=== PATIENT | female | born 1960 | race African-American/Black ===

== ENCOUNTER 2023-08-24 06:38 | Observation (INO) ==
--- NOTE | 2023-08-04 14:26 | PAT Medication Instructions ---
Medication Instructions Date of Service August 04, 2023 Home Medications acetaminophen 325 mg tablet (Tylenol) 325 mg PO QID PRN Pain hydrochlorothiazide 12.5 mg tablet 12.5 mg PO QAM ibuprofen 800 mg tablet 800 mg PO Q6H PRN Pain ustekinumab 90 mg/mL subcutaneous syringe (Stelara) 90 mg subcut DIRECTED ASK your surgeon for instructions ibuprofen 800 mg tablet 800 mg PO Q6H PRN Pain ASK your prescriber and surgeon ustekinumab 90 mg/mL subcutaneous syringe (Stelara) 90 mg subcut DIRECTED DO NOT take the morning of surgery hydrochlorothiazide 12.5 mg tablet 12.5 mg PO QAM Take morning of surgery With a small sip of water, OTHERWISE NOTHING TO EAT OR DRINK AFTER MIDNIGHT: acetaminophen 325 mg tablet (Tylenol) 325 mg PO QID PRN Pain (if needed) Take evening before surgery acetaminophen 325 mg tablet (Tylenol) 325 mg PO QID PRN Pain (if needed) Other Notes If you have any questions please call us at [phone] or [phone] or [phone] or [phone]
--- NOTE | 2023-08-09 10:45 | Anesthesiology Consultation ---
Date of Service August 09, 2023 Assessment & Plan (1) Encounter for pre-operative examination: Chart Review Chart Review: Acceptable Risk for Surgery and Patient NOT seen in Pre Admission Testing Difficult lab stick Pt currently scheduled as 23 hours observation. If surgeon decides to change patient to Same Day Joint, patient would be acceptable risk for TKA, pending patient is motivated, has good support and surgeon's office completes [facility] Program preop requirements. Per PAT appt on 08/09/23, no recent illness/disease exposures, illness related symptoms, or recent illness/disease positive tests. Will leave to surgeon's discretion if preop Covid testing needed Teaching & Discussion Pre-Anesthesia Teaching/Discussion Notes: Instructed NPO after midnight before surgery,except medications with 15 cc of water. Medication instructions provided according to the PAT guidelines. History Surgery Operation Date: 08/24/23 07:00 Proposed Procedures p Right Total Knee Arthroplasty - Lito Rosales MD Height/Weight Height: 5 ft 7 in Weight: 112.4 kg Allergies Allergy/AdvReac Type Severity Reaction Status Date / Time No Known Allergies Allergy Verified 08/04/23 08:04 Medications Home Medications Medication Instructions Recorded Confirmed Last Taken acetaminophen 325 mg tablet 325 mg PO QID PRN Pain 08/04/23 08/04/23 Unknown (Tylenol) hydrochlorothiazide 12.5 mg tablet 12.5 mg PO QAM 08/04/23 08/04/23 Unknown ibuprofen 800 mg tablet 800 mg PO Q6H PRN Pain 08/04/23 08/04/23 Unknown ustekinumab 90 mg/mL subcutaneous 90 mg subcut DIRECTED 08/04/23 08/04/23 Unknown syringe (Stelara) Past Medical History Medical History Arthritis Esophageal achalasia remote hx with surgery to correct > no current issues History of COVID-2021 > not hospitalized Hypertension Psoriasis Exercise / Class Metabolic Activity II 4-5 Yardwork/Stairs/Walk up hill (no chest pain or SOB with one flight of stairs ) Past Surgical History Surgical History History of esophagogastroduodenoscopy (EGD) History of tooth extraction Past Anesthesia History No Hx of Anesthesia Complications and No Family Hx of Anesthesia Complications History of PONV No Hx of PONV and No Hx of Motion Sickness Social History Smoking Status: Never smoker Do You Dip or Chew Tobacco: No Hx Alcohol Use: No Hx Substance Use: No substance use type: does not use Review of Systems Patient denies chest pain, shortness of breath, dyspnea on exertion, reflux, cough, wheezing, palpitations. No hx of seizures, stroke, UT, apnea/snoring. No hx of blood clots or blood transfusions Physical Exam Vital Signs VITALS BP 140/87 P 76 TEMP 98.2 SP02 99% RESP 16 Constitutional no acute distress ENMT Mouth: no TMJ clicking Thyromental Distance: > or= 3.5 Finger Breadths (3.5) Mallampati Class: II Full dentures on top and bottom Neck neck extension not limited Respiratory normal respiratory effort; no respiratory distress Auscultation: lungs clear to auscultation bilaterally; no wheezes Cardiovascular Rate/Rhythm: regular rate and regular rhythm Heart Sounds: no murmur Vessels: no carotid bruit Musculoskeletal Spine: no pain with cervical ROM Extremities: extremities normal to inspection Psychiatric Orientation: alert Lab Results Anesthesia Preop Results Results Anesthesia Widget: WBC 4.86 K/ul (4.8-10.8) 08/09/23 Hgb 12.6 g/dl (12.0-16.0) 08/09/23 Hct 36.4 % (37.0-47.0) L 08/09/23 Plt 194 K/uL (130-400) 08/09/23 Na 141 mmol/L (136-145) 08/09/23 K 3.6 mmol/L (3.5-5.1) 08/09/23 Cl 106 mmol/L (98-107) 08/09/23 CO2 29 mmol/L (21-32) 08/09/23 BUN 12 mg/dl (6-23) 08/09/23 Creat 0.80 mg/dl (0.6-1.2) 08/09/23 Glucose Level 93 mg/dl (70-99(Fasting)) 08/09/23 PT 11.0 Seconds (9.0-12.0) 08/09/23 PTT 27.6 Seconds (21.0-31.0) 08/09/23 INR 1.0 (0.9-1.1) 08/09/23 Urine Color Yellow 08/09/23 Urine Appearance Clear (Clear) 08/09/23 Urine pH 6.5 (4.5-7.5) 08/09/23 Urine Specific Armstrong 1.018 (1.000-1.030) 08/09/23 Urine Protein Negative (Negative) 08/09/23 Urine Glucose (UA) Negative (Negative) 08/09/23 Urine Ketones Negative (Negative) 08/09/23 Urine Blood Negative (Negative) 08/09/23 Urine Nitrite Positive (Negative) A 08/09/23 Urine Bilirubin Negative (Negative) 08/09/23 Urine Urobilinogen Negative (Negative) 08/09/23 Urine Leukocyte Esterase 1+ (Negative) H 08/09/23 Urine WBC (Auto) 10-30 /hpf (0-5) H 08/09/23 Urine RBC (Auto) 0-4 /hpf (0-4) 08/09/23 Urine Hyaline Casts (Auto) 0 /lpf (0-5) 08/09/23 Urine Epithelial Cells (Auto) 5-10 /lpf (0-5) H 08/09/23 Urine Bacteria (Auto) 4+ (Negative) H 08/09/23 Blood Type O Positive 08/09/23 Antibody Screen NEGATIVE 08/09/23 Testing Laboratory Results Surgeon's office informed of abnormal UA Electrocardiogram Date: 08/09/23 SR with PACs at 70bpm Otherwise normal EKG per cardio
--- NOTE | 2023-08-10 16:23 | History & Physical Report ---
Date of Service August 10, 2023 Assessment & Plan (1) Osteoarthritis of right knee: Plan: PRE-OP Diagnosis: Right knee degenerative joint disease Planned Procedure: Right total knee arthroplasty Plan: Patient is scheduled to undergo this procedure at the [facility] with Dr. Rosales on August 24, 2023. Risks and complications of the procedure such as: Infection, bleeding, pain, scarring, nerve blood vessel damage, weakness, wound problems, stiffness, incomplete relief of symptoms, hardware failure, hardware loosening, wear, fracture, tendon or ligament injury, blood clots, embolism, cardiac, stroke and were explained to the patient at her visit today and informed consent for the procedure was obtained. Patient also understands risks of proceeding with surgical intervention during the COVID-19 pandemic. Currently she is asymptomatic and states that she has not been in contact with anyone positive for the virus recently. We will need to obtain preoperative medical clearance from the patient's primary care provider. We will also received guidance on when the patient should stop her Stelara before surgery by her impact hammer operator. Patient is scheduled to meet with anesthesia at the hospital later this morning. While there she will obtain a CBC with differential, complete metabolic panel, PT/INR, blood type and screen, urinalysis, urine culture and sensitivity, and an EKG. During today's visit we reviewed the total knee packet. I provided the patient with paperwork to obtain obtaining a handicap placard for her vehicle. I provided her with information about lectures offered by [facility] in regards to joint replacement surgery. I provided her with an order to obtain a walker. I recommended that she purchase a shower chair and raised toilet seat. We discussed discharge planning from the hospital. Patient states she will most likely do in-home physical therapy for the first 2 weeks before transitioning to outpatient physical therapy. I advised the patient that she will be provided with a prescription for narcotic pain medication for postoperative pain control. We will have her on aspirin twice daily for the first 30 days postoperatively for blood clot prevention. Patient verbalized understanding of all information provided during today's visit. Patient be scheduled for 2-week postoperative follow-up visit with myself on September 06, 2023. This chart was completed utilizing go2 media voice recognition software. Grammatical errors, random word insertions, pronoun errors, and in complete sentences are an occasional consequence of the system. Any questions or concerns about the content, text, or information contained within the body of this dictation should be addressed directly to the physician for clarification. History of Present Illness Chief Complaint: Chief Complaint: Right knee pain Primary Care Provider: NO PCP History of Present Illness (including history relevant to procedure): 62-year-old female presents to the clinic today for preoperative history and physical. Patient complains of a 2-year history of persistent right knee pain that affects the medial and lateral aspect of her knee. Patient states she has had corticosteroid injections and failed 2 series of viscosupplementation with Euflexxa. Patient states she has been using ibuprofen to help manage her pain but is minimally effective. She also states she tried a knee brace which did not alleviate her pain at all. She is electing to proceed with surgical intervention for her severe arthritis. Review Of Systems: A 12 point review of systems form is unremarkable except for those things stated in the HPI and past medical history. Past Medical History: Problems: Genu valgum Degenerative arthritis of knee, bilateral Overweight Hypertension Sickle cell trait Hiatal hernia Obesity Upper and lower dentures Psoriasis Procedure History Procedure Procedure Date Comments EGD section Allergies and Sensitivities: NKA Current Home Meds: (Last Updated 08/10 16:01) ciprofloxacin (Cipro 500 mg oral tablet) 500 mg PO q12h PREOP UTI sodium hyaluronate (Euflexxa 10 mg/mL intra-articular solution) 20 mg intra- articular q7days 6 syringes for B/L knees. Please ship to physician's office: [address] [place] [address] ustekinumab (Stelara Vial 45 mg/0.5 mL SQ solution) 45 mg subQ STELARA VIAL TO INJECT UNDER THE SKIN EVERY _WEEKS. DISCARD REMAINDER. Initial Wt: 08/09 112.8 kg 248 lb Allergies Allergy/AdvReac Type Severity Reaction Status Date / Time No Known Allergies Allergy Verified 08/04/23 08:04 Home Medications Medication Instructions Recorded Confirmed Type acetaminophen 325 mg tablet 325 mg PO QID PRN Pain 08/04/23 08/04/23 History (Tylenol) hydrochlorothiazide 12.5 mg tablet 12.5 mg PO QAM 08/04/23 08/04/23 History ibuprofen 800 mg tablet 800 mg PO Q6H PRN Pain 08/04/23 08/04/23 History ustekinumab 90 mg/mL subcutaneous 90 mg subcut DIRECTED 08/04/23 08/04/23 History syringe (Stelara) Past Med/Surg History Medical History Arthritis Esophageal achalasia remote hx with surgery to correct > no current issues History of COVID-19 2021 > not hospitalized Hypertension Psoriasis Surgical History History of esophagogastroduodenoscopy (EGD) History of tooth extraction Social History Smoking Status: Never smoker Second Hand Exposure: No; Do You Dip or Chew Tobacco: No; Hx Alcohol Use: No Hx Substance Use: No Preferred Language: Japanese Communication Ability: Effective Director Strategic Planning Required: No Beliefs That Will Affect Care: None Current Living Situation: Family Feels Safe at Home: Yes Assistive Devices: Denture - Upper, Denture - Lower and Glasses Review of Systems All systems reviewed & are unremarkable except as noted in Subjective Physical Exam Physical Exam: Physical Exam: (relevant to the procedure, including heart and lung evaluation) General: Alert and oriented x3 with proper grooming and hygiene Eyes: Pupils are equal and reactive to light with accommodation. Extraocular movements are intact Throat: Posterior oropharynx is clear with absence of edema, erythema and exudate. Presence of upper and lower dentures noted Cardiac: Regular rate with irregular rhythm (occasional PVC). No murmurs or gallops appreciated Lungs: Clear to auscultation throughout with no wheezing, rales or rhonchi Abdomen: Obese, nondistended, nontender with NABS Extremities: Right knee; range of motion is from 10 degrees of extension to 90 degrees of flexion. Patient experiences medial and lateral joint tenderness when the knees are palpated in the flexed position. She has visible valgus malalignment. Her patella is not mobile due to arthritic change within the patellofemoral joint. There is audible crepitation with passive range of motion of the knee. There is no laxity with varus or valgus stressing. AP drawer sign is unremarkable. Patient is neurovascular intact. Neuro: Cranial nerves II through XII are intact no motor or sensory deficit Skin: Normal in appearance with no open skin areas or discharge Results & Data Diagnostic Findings Studies (relevant to the procedure): 4 views of both knees which shows bone on bone arthritis bilaterally, right worse than the left. Tricompartmental osteophyte formation stable compared to x-rays from 1 year ago.
[~2023-08-24 06:38] MED LIST: ACETAMINOPHEN 500 MG TAB PO SCH; BUPIVACAINE 0.25% PF 30 ML VIAL ONE; BUPIVACAINE 0.5 % 5 MG/1 ML PF 10ML VIAL ONE; CeleBREX 200 MG CAP PO SCH; FAMOTIDINE 20 MG TAB PO SCH; LR 60ML/HR IV SCH; MIDAZOLAM HCL 1 MG/ML 2ML VIAL ONE; ORTHO JOINT ANESTHETIC ONE; PROPOFOL IV EMULSION 10 MG/ML 20 ML VIAL IV ONE; ROPIVACAINE 0.5% HCL/PF 150 MG, BUPIVACAINE 0.75% MPF 20 ML, EPINEPHrine 0.15 MG, Ketor... INFIL SCH; Scopolamine 1 MG TDSY TD SCH; TRANEXAMIC ACID 1,000 MG **IV Intra-op IV SCH; TRANEXAMIC ACID 1,000 MG **IV Pre-op IV SCH; dexAMETHasone 4 MG TAB PO SCH; fentaNYL citrate PF 100 MCG/2 ML VIAL ONE; traMADol HCL 50 MG TABLET PO SCH
--- NOTE | 2023-08-24 06:48 | History & Physical Bridge Note ---
Date of Service August 24, 2023 History & Physical Bridge Note I have examined the patient, reviewed the History & Physical and in the interval since the performance of the History & Physical I have noted the following changes of clinical significance: no changes noted
[2023-08-24] MEDS ORDERED: ONDANSETRON INJ 2 MG/ML 2 ML VIAL IV PRN ×2 (06:59→10:06)
[2023-08-24] MEDS ORDERED: ATROPINE SULFATE 0.1 MG/ML 10ML SYR IV PRN (06:59)
[2023-08-24] MEDS ORDERED: ePHEDrine sulfate 50 MG/ML AMP IV PRN (06:59)
[2023-08-24] MEDS ORDERED: ROCURONIUM BROMIDE 10 MG/ML 5 ML VIAL IV ONE (08:08)
[2023-08-24] MEDS ORDERED: LIDOCAINE 2% 2 ML VIAL/AMP(20MG/ML) INFIL ONE (08:08)
[2023-08-24] MEDS ORDERED: fentaNYL citrate PF 100 MCG/2 ML VIAL IV PRN (08:09)
[2023-08-24] MEDS ORDERED: fentaNYL citrate PF 100 MCG/2 ML VIAL ONE (08:19)
[2023-08-24] MEDS ORDERED: LABETALOL HCL IV 5 MG/ML 20ML IV ONE ×5 (08:23→08:53)
[2023-08-24] MEDS ORDERED: HYDROmorphone INJ 2 MG/ML SYR/VIAL ONE (08:34)
[2023-08-24] MEDS ORDERED: ONDANSETRON INJ 2 MG/ML 2 ML VIAL ONE (08:46)
[2023-08-24] MEDS ORDERED: ePHEDrine sulfate 50 MG/5 ML SYR ONE (09:33)
[2023-08-24] MEDS ORDERED: METOCLOPRAMIDE HCL INJ 5 MG/ML 2 ML VIAL IV PRN (10:06)
[2023-08-24] MEDS ORDERED: ALUMINUM/MAGNESIUM SUSP 30 ML UDC PO PRN (10:06)
[2023-08-24] MEDS ORDERED: MAGNESIUM HYDROXIDE SUSP 30 ML UDC PO PRN (10:06)
[2023-08-24] MEDS ORDERED: NALOXONE HCL 0.4 MG/1 ML VIAL/CARP IV PRN (10:06)
[2023-08-24] MEDS ORDERED: HYDROmorphone INJ 0.5 MG/0.5 ML SYR IV PRN (10:06)
[2023-08-24] MEDS ORDERED: bisacodyL 10 MG SUPP PR PRN (10:06)
[2023-08-24] MEDS ORDERED: diphenhydrAMINE 50 MG/ML VIAL IV PRN (10:06)
--- NOTE | 2023-08-24 10:06 | Operative Report ---
Post Operative Report Pre & Post Diagnosis Operation Date: 08/24/23 07:00 Pre-Op Diagnosis: Right knee degenerative joint disease Post-Op Diagnosis: Right knee degenerative joint disease I identified the patient and participated in the time-out.: Yes Procedure Operation Date: 08/24/23 07:00 Actual Procedures p Right Total Knee Arthroplasty(Right) - Lito Rosales MD Surgeon Lito Rosales MD Large Animal Husbandry Technician Lamin Funk PA-C Estimated Blood Loss 200 Findings Consistent with Post-Op Diagnosis Specimens knee bone and tissue Description of Procedure I was present during the entire case assisting with positioning, prepping, draping, wound retraction, wound closure and dressing application. No fellow present. Please see Dr. Rosales procedure note for specifics of the case. I attest to the content of the Intraoperative Record and any orders documented therein. Any exceptions are noted below.
--- NOTE | 2023-08-24 10:08 | Operative Report ---
Post Operative Report Pre & Post Diagnosis Operation Date: 08/24/23 07:00 Pre-Op Diagnosis: Right knee degenerative joint disease, valgus malalignment Post-Op Diagnosis: Right knee degenerative joint disease, valgus malalignment I identified the patient and participated in the time-out.: Yes Procedure Operation Date: 08/24/23 07:00 Actual Procedures p Right Total Knee Arthroplasty(Right) 22 modifier should be added to the case due to the patient's valgus malalignment and elevated body mass index of 39 both of which increased the complexity of the case and required a larger incision, additional time for exposure, execution of the knee replacement, and closure of the wound.- Lito Rosales MD Surgeon Lito Rosales MD Corrections Caseworker MANNY Funk PA-C. No resident or fellow was available to assist. Estimated Blood Loss 200 Findings Consistent with Post-Op Diagnosis Specimens Right knee bone and soft tissue contents. Anesthesia Type General Regional Complications none Disposition Disposition: Recovery Room Indications 62-year-old female with right knee valgus malalignment and severe [id number] osteoarthritis refractory to conservative management. I had a long discussion with her about the risks and benefits of surgery, alternatives to surgery, and expected outcomes. She understands that she is at elevated risk for complications secondary to her valgus malalignment and her obesity. After reviewing all her options she elected to proceed with surgery. All questions were answered. Informed consent was signed. Description of Procedure Patient was identified in the preoperative holding area where the surgical site, left knee, was marked. Spinal anesthetic was attempted by anesthesia, but was unsuccessful. Abductor canal block however was placed. Patient was brought back to the operating room, placed on the operating room table, and general anesthesia was administered. A bump was placed underneath the ipsilateral hip. All bony prominences were padded. Perioperative antibiotics and tranexamic acid were administered. Exam under anesthesia was performed. This demonstrated approximately 15 degrees of valgus malalignment. Range of motion arc was from approximately 10 to 90 degrees. Stable to varus and valgus at 30 degrees of flexion. The surgical site was prepped and draped in the normal sterile fashion. Prior to incision a multidisciplinary timeout was called. All in the room were in agreement. We began by exsanguinating the limb with an Esmarch bandage. Tourniquet was inflated to 250 mmHg. An 18 cm long incision was made over the anterior aspect of the knee. This was larger than is typically performed secondary to her elevated body mass index and obesity. I dissected through the subcutaneous tissues to the level of the fascia. Full-thickness flaps were raised above the fascia. Patient had some bleeding as a result of her blood pressure being elevated to 160 systolic. Therefore, the tourniquet was increased to 300 mmHg while anesthesia worked to lower her blood pressure. Electrocautery and an aqua mantis was used to achieve hemostasis. A median parapatellar arthrotomy was made. Half the fat pad was excised. A medial release was performed with Bovie electrocautery on the proximal tibia. Synovitis in the knee and suprapatellar pouch was removed. The patella was then everted and held with 2 towel clips. 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 The thickness of the patella was measured at 21 mm. Patellar resection was performed. Caliper showed the patella thickness now to be 14 mm. A size 32 trial was placed and had a great fit. The 3 drill holes were placed then the trial button was placed. The patellar thickness was now 23 mm which I was very happy with. The patellar trial was then removed, and the knee was flexed up. Retractors were placed to protect the MCL and LCL. The knee was inspected and there was severe osteoarthritis in the lateral compartment with eburnation of the lateral tibial plateau and the lateral femoral condyle. Osteophytes were removed from the femoral condyles and intercondylar notch. The ACL and PCL were excised. Intramedullary drill guide was drilled into the femur. Distal femoral cutting guide was placed set at 5 degrees of valgus to resect 11 mm off the distal femur. Distal femoral resection was made without difficulty. The tibia was then exposed. The lateral meniscus was sharply excised. The tibial cutting jig was positioned in line with the tibial shaft in the coronal plane and with 3 degrees of posterior slope in the sagittal plane to resect 7 mm off the more involved compartment. The jig was then pinned in position and the tibial cut was made. We then brought the knee into full extension. Lamina spreaders were placed. We had a nice rectangular box. Lateral soft tissues were inspected and there was no excessive tightness. The medial meniscus was excised. The extension block was then placed for 5 mm thickness poly. This gave us full extension and excellent stability to varus and valgus stress. Next the extension block was removed, the knee was flexed up, collateral ligaments were protected, and the epicondylar axis and Whitesides line were marked out on the distal femoral cut. Femoral sizing guide was placed. External rotation was set at 3 degrees so that the posterior cut would be parallel with the epicondylar axis and perpendicular with Whitesides line. The patient sized to a size 5 femur. 2 pins were then placed through the jig into the distal femur. The jig was removed and the appropriately sized 4-in-1 cutting jig was placed over the pins, then fixated to the bone using threaded, headed pins. We confirmed that we would not notch the femur with our anterior cut. Our 4 cuts were then made. The cutting jig was removed. The flexion block was then placed with the knee held at 90 degrees. There was excellent stability to varus and valgus at 90 degrees with no gapping medially or laterally. Next the box cutting jig was placed on the distal femur. The box cut was made and the femoral trial was impacted into position. Lug holes were drilled in the distal femur. We then reexposed the tibia. The tibia was sized to a 5 for a fixed-bearing component. The tibial tray with a 5 mm thickness polyethylene liner was placed on the cut tibial surface and the knee was brought through a full range of motion. There was excellent stability to varus valgus stress throughout a full range of motion, which was approximately 0-115 degrees. Bovie electrocautery was used to mo the tibia at the site where the tibial tray rested in full extension. We then flexed up the knee, removed the polyethylene liner, and pinned the tibial tray into position to match the cautery mo. The intramedullary drill followed by the keel punch were used to prepare the tibia. Next the trial components were removed. I then injected the posterior capsule and periosteum with the periarticular injection cocktail. The bone cuts were then irrigated and dried while the cement was mixed on the back table. The femoral component was cemented on first. Excess cement was removed. A lap sponge was placed over the femoral component for protection, then the tibia was subluxated anteriorly. The all polyethylene tibial component was then cemented in place. Again excess cement was removed. The knee was brought into full extension and held there until the cement cured. The patella was cemented and clamped. Dilute Betadine solution was then allowed to soak in the knee while the cement cured. Once the cement was fully cured, the knee was irrigated out, the tourniquet was let down and meticulous hemostasis was ensured. The knee was brought through a full range of motion. I was were very happy with the patella tracking and the stability. We then began to close. Interrupted 0 Vicryl suture was used to repair the patellar retinaculum in [id number] fashion. The quadriceps and patellar tendons were run with #1 Vicryl. The deep dermal layer was closed with interrupted 2-0 Vicryl. Dermabond and Zipline was used for the skin, followed by a Silverlon dressing. A compressive Ashu wrap was placed and the knee was placed into a knee immobilizer. Patient's sedation was lifted and was transferred to recovery room in stable condition. Summary of implants: Depuy Attune Posterior Stabilized Cemented Femur, size 5 right Attune All-polyethylene tibial component, posterior stabilized 5 mm thickness, size 5 Attune patella medialized dome, size 32 2 batches of simplex high viscosity bone cement Postoperative course: Patient will be admitted to the floor for pain control and monitoring. Weightbearing as tolerated with a walker with no knee range of motion for 48 hours. Aspirin for DVT prophylaxis. I attest to the content of the Intraoperative Record and any orders documented therein. Any exceptions are noted below.
[2023-08-24] MEDS ORDERED: IBUPROFEN 800 MG TAB PO PRN (10:09)
[2023-08-24] MEDS ORDERED: ACETAMINOPHEN 325 MG TAB PO PRN (10:09)
[2023-08-24] MEDS: fentaNYL citrate PF 100 MCG/2 ML VIAL IV PRN ×4 (10:11→10:26)
[2023-08-24] MEDS: HYDROmorphone INJ 1 MG/ML SYRINGE IV PRN ×4 (10:27→10:44)
--- NOTE | 2023-08-24 11:18 | XRay Report ---
XR knee RT 1 or 2V routine HISTORY: 62 years-old Female Surgical Post Op right knee total joint arthroplasty COMPARISON: 08/09/2023 TECHNIQUE: 2 views of the right knee FINDINGS: Total joint arthroplasty with patellar resurfacing. Expected postoperative soft tissue swelling with deep tissue air. No acute fracture, dislocation or opaque foreign body. IMPRESSION: Total joint arthroplasty with expected postoperative changes. ACT 112: Negative or not required by law. The above report was generated using voice recognition software. It may contain grammatical, syntax o r spelling errors. Electronically signed by: Fam Tenorio M.D. 08/24/2023 11:17 AM
[2023-08-24] MEDS: SODIUM CHLORIDE 0.9% 1,000 ML IV SCH ×2 (11:43→21:54)
[2023-08-24] MEDS: KETOROLAC TROMETHAMINE 15 MG/ML VIAL IV SCH ×3 (11:45→21:01)
[2023-08-24] MEDS: ACETAMINOPHEN 500 MG TAB PO SCH ×2 (14:07→21:01)
--- NOTE | 2023-08-24 15:25 | Anesthesiology Progress Note ---
Date of Service August 24, 2023 Anesthesia Post Procedure Vital Signs Vital Signs: Temp Pulse Pulse Resp BP Pulse Ox O2 Del Method 08/24/23 14:10 36.4 C L 69 18 146/82 H 98 Room Air 08/24/23 13:10 36.2 C L 67 16 132/80 100 Nasal Cannula 08/24/23 12:10 36.4 C L 58 L 16 125/84 98 Nasal Cannula 08/24/23 11:40 36.4 C L 59 L 16 122/78 99 Nasal Cannula 08/24/23 11:28 Nasal Cannula 08/24/23 11:10 36.5 C 64 16 137/88 98 Nasal Cannula 08/24/23 11:00 60 14 132/88 98 Nasal Cannula 08/24/23 10:50 58 L 13 133/86 99 Nasal Cannula 08/24/23 10:40 36.5 C 60 12 136/82 99 Nasal Cannula 08/24/23 10:30 61 19 133/83 97 Nasal Cannula 08/24/23 10:20 63 17 141/85 H 97 Nasal Cannula 08/24/23 10:10 67 15 137/88 100 Oxymask 08/24/23 10:03 36.3 C L 70 16 137/84 100 Oxymask 08/24/23 06:56 Room Air 08/24/23 06:52 36.9 C 86 20 154/112 H 97 Room Air O2 Flow Rate 08/24/23 14:10 08/24/23 13:10 1 08/24/23 12:10 1 08/24/23 11:40 1 08/24/23 11:28 1 08/24/23 11:10 1 08/24/23 11:00 3 08/24/23 10:50 3 08/24/23 10:40 3 08/24/23 10:30 3 08/24/23 10:20 3 08/24/23 10:10 4 08/24/23 10:03 6 08/24/23 06:56 08/24/23 06:52 Pain Intensity Right Knee: Pain Intensity: 10 Transfer of Care Handoff Completed per policy Notes Mental Status: alert / awake / arousable and participated in evaluation Patient Amnestic to Procedure: Yes Nausea / Vomiting: adequately controlled Pain: adequately controlled and improving with treatment Airway Patency, RR, SpO2: stable & adequate BP & HR: stable & adequate Hydration State: stable & adequate Anesthetic Complications: no major complications apparent and Pt Satisfied with anesthetic care
[2023-08-24] MEDS: ceFAZolin 2000MG 2,000 MG/15 ML SYR IV SCH ×2 (15:52→23:55)
[2023-08-24] MEDS: Scopolamine CHECK PATCH PLACEMENT SCH (15:54)
[2023-08-24] MEDS: oxyCODONE HCL IR 5 MG TAB (IMMEDIATE RELEASE) PO PRN ×3 (15:55→23:57)
[2023-08-24] MEDS ORDERED: TRANEXAMIC ACID / 0.7% NACL 1,000 MG/100 ML BAG IV SCH (16:15)
--- NOTE | 2023-08-24 17:09 | Orthopedic Progress Note ---
Date of Service August 24, 2023 Assessment & Plan (1) S/P total knee replacement: (2) Peroneal nerve lesion: Plan: I discussed with the patient that she is firing some of the muscles innervated by the common peroneal nerve, however she does not find her ankle dorsiflexors at present. Therefore we will treat her as a peroneal nerve injury. The nurse at the bedside we were able to position her so her hip was in extension and her knee was flexed off the side of the bed resting on a pillow with the knee at approximately 70 degrees of flexion. I asked her to remain in this position at all times except to have her dinner at which time she can sit upright until the nerve recovers. It would be okay for her to get out of bed with a walker to use the restroom so long as she is extremely cautious, since she is a fall risk because of a peroneal nerve injury. Therefore, walking should be minimized until the nerve recovers. Should she continue to have loss of ankle dorsiflexion tomorrow we would plan on getting her an AFO. Her nurse will contact me later this evening to give me an update on her foot and ankle. I reviewed her x-ray findings with her from the recovery room and the hardware is in good position with no evidence of complication on x-ray. Admission and Anticipated Discharge Date Admission Date: August 24, 2023 Subjective Patient seen and examined on afternoon rounds. She underwent total knee replacement for valgus knee earlier today. She reports her pain is under good control. Not having any nausea or vomiting. Her dinner arrived while I was at her bedside and she reports she is hungry. Denies fevers chills chest pain shortness of breath. Physical Exam Physical Exam: On exam her dressing is clean dry and intact. Knee immobilizer is in place. She was able to fire her toe extensors and peroneals at 4 out of 5 strength. However she had difficulty firing her ankle dorsiflexors. She reports sensation intact to light touch over the dorsum of the foot but decreased sensation over the lateral aspect of her calf. Knee immobilizer was removed. Her Ashu bandage was checked and it was not overly tight. Results & Data Vital Signs (Past 12 Hours) Vital Signs Temp Pulse Pulse Resp BP Pulse Ox O2 Del Method 08/24/23 14:10 36.4 C L 69 18 146/82 H 98 Room Air 08/24/23 13:10 36.2 C L 67 16 132/80 100 Nasal Cannula 08/24/23 12:10 36.4 C L 58 L 16 125/84 98 Nasal Cannula 08/24/23 11:40 36.4 C L 59 L 16 122/78 99 Nasal Cannula 08/24/23 11:28 Nasal Cannula 08/24/23 11:10 36.5 C 64 16 137/88 98 Nasal Cannula 08/24/23 11:00 60 14 132/88 98 Nasal Cannula 08/24/23 10:50 58 L 13 133/86 99 Nasal Cannula 08/24/23 10:40 36.5 C 60 12 136/82 99 Nasal Cannula 08/24/23 10:30 61 19 133/83 97 Nasal Cannula 08/24/23 10:20 63 17 141/85 H 97 Nasal Cannula 08/24/23 10:10 67 15 137/88 100 Oxymask 08/24/23 10:03 36.3 C L 70 16 137/84 100 Oxymask 08/24/23 06:56 Room Air 08/24/23 06:52 36.9 C 86 20 154/112 H 97 Room Air O2 Flow Rate 08/24/23 14:10 08/24/23 13:10 1 08/24/23 12:10 1 08/24/23 11:40 1 08/24/23 11:28 1 08/24/23 11:10 1 08/24/23 11:00 3 08/24/23 10:50 3 08/24/23 10:40 3 08/24/23 10:30 3 08/24/23 10:20 3 08/24/23 10:10 4 08/24/23 10:03 6 08/24/23 06:56 08/24/23 06:52
[2023-08-24] MEDS: DOCUSATE SODIUM 100 MG CAP PO SCH (20:55)
[2023-08-24] MEDS ORDERED: SENNA 8.6 MG TAB PO SCH (21:00)
[2023-08-25] MEDS: Scopolamine CHECK PATCH PLACEMENT SCH ×3 (00:19→14:50)
[2023-08-25] MEDS: KETOROLAC TROMETHAMINE 15 MG/ML VIAL IV SCH (04:07)
[2023-08-25] MEDS: ACETAMINOPHEN 500 MG TAB PO SCH ×2 (05:39→14:50)
[2023-08-25] MEDS: oxyCODONE HCL IR 5 MG TAB (IMMEDIATE RELEASE) PO PRN ×2 (05:40→16:30)
[2023-08-25 06:47] LABS: Hematocrit (blood only) 27.5 % (37.0-47.0); Hemoglobin 9.4 g/dl (12.0-16.0); Mean Corpuscular Hemoglobin 29.4 pg (25.0-34.0); Mean Corpuscular Hgb Conc 34.2 g/dL (32.0-36.0); Mean Corpuscular Volume 85.9 fL (80.0-100.0); Mean Platelet Volume 12.2 fL (9.4-12.4); Platelet Count 136 K/uL (130-400); RDW Coefficient of Variation 13.5 % (11.5-14.5); RDW Standard Deviation 42.2 fL (36.4-46.3); White Blood Count 13.75 K/ul (4.8-10.8)
[2023-08-25 06:54] LABS: Calcium 8.3 mg/dl (8.6-10.3); Potassium 4.2 mmol/L (3.5-5.1)
[2023-08-25 07:00] LABS: BUN Creatinine Ratio 12.2 (10-20); Est GFR (African American) 80.5 ml/min; Est GFR (Non-African American) 69.5 ml/min
[2023-08-25] MEDS ORDERED: dexAMETHasone 4 MG TAB PO SCH (08:00)
[2023-08-25] MEDS: DOCUSATE SODIUM 100 MG CAP PO SCH (08:54)
[2023-08-25] MEDS ORDERED: ASPIRIN 81 MG ECTAB PO SCH (09:00)
[2023-08-25] MEDS ORDERED: MULTIVITAMIN TAB PO SCH (09:00)
[2023-08-25] MEDS ORDERED: hydroCHLOROthiazide 25 MG TAB PO SCH (09:00)
[2023-08-25] MEDS ORDERED: CeleBREX 200 MG CAP PO SCH (09:00)
--- NOTE | 2023-08-25 09:12 | Orthopedic Progress Note ---
Date of Service August 25, 2023 Assessment & Plan (1) S/P total knee replacement: Plan: PT/OT Weightbearing as tolerated with walker assistance and immobilizer use for the first 48 hours postoperatively Pain control with p.o. medication DVT prophylaxis with LIBRADO stockings and aspirin Ice with easy wrap Keep Silverlon dressing in place Plan is to discharge home later today with in-home physical therapy for the first 2 weeks postoperatively Follow-up at [facility] orthopedics as previously scheduled With questions contact our clinic at [phone] Admission and Anticipated Discharge Date Admission Date: August 24, 2023 Subjective This 62-year-old female is day 1 status post right total knee arthroplasty. She is currently sitting in her bedside chair eating breakfast. She states that her pain is effectively controlled with the p.o. pain medication she was given. She is very pleased with the results of her surgery. Currently she denies chest pain, shortness of breath, fever, chills, sweats, numbness or tingling in her right lower extremity. She states that she has been able to transition from her bed to the chair and from her chair to her walker and been able to use the restroom without issue. She also denies nausea, vomiting, diarrhea or difficulty voiding. Review of Systems Review of Systems: All systems reviewed & are unremarkable except as noted in Subjective Physical Exam Physical Exam: Right knee: Outer dressing was removed. Silverlon's are clean dry and intact and left in place. Patient does have some mild tenderness to palpation over the quadriceps region where the tourniquet was placed. She is able to actively perform a straight leg raise test and actively dorsi and plantarflex her foot. Active knee range of motion is from 0 degrees of extension to 80 degrees of flexion. Patient is neurovascularly intact. There is no laxity with light varus or valgus stressing. Results & Data Vital Signs (Past 12 Hours) Vital Signs Temp Pulse Resp BP BP Pulse Ox O2 Del Method 08/25/23 07:05 36.8 C 73 16 100/62 97 Room Air 08/25/23 06:00 36.9 C 70 18 123/76 94 Room Air 08/25/23 02:18 36.7 C 79 18 105/64 96 Room Air 08/24/23 21:59 36.6 C 71 18 130/71 95 Room Air Diagnostic Findings Laboratory Results WBC 13.75 K/ul (4.8-10.8) H 08/25/23 06:13 RBC 3.20 M/uL (4.20-5.40) L 08/25/23 06:13 Hgb 9.4 g/dl (12.0-16.0) L 08/25/23 06:13 Hct 27.5 % (37.0-47.0) L 08/25/23 06:13 MCV 85.9 fL (80.0-100.0) 08/25/23 06:13 MCH 29.4 pg (25.0-34.0) 08/25/23 06:13 MCHC 34.2 g/dL (32.0-36.0) 08/25/23 06:13 RDW Std Deviation 42.2 fL (36.4-46.3) 08/25/23 06:13 RDW Coeff of Lyn 13.5 % (11.5-14.5) 08/25/23 06:13 Plt Count 136 K/uL (130-400) 08/25/23 06:13 MPV 12.2 fL (9.4-12.4) 08/25/23 06:13 Sodium 136 mmol/L (136-145) 08/25/23 06:13 Potassium 4.2 mmol/L (3.5-5.1) 08/25/23 06:13 Chloride 105 mmol/L (98-107) 08/25/23 06:13 Carbon Dioxide 25 mmol/L (21-32) 08/25/23 06:13 Anion Gap 6 (3-11) 08/25/23 06:13 BUN 11 mg/dl (6-23) 08/25/23 06:13 Creatinine 0.90 mg/dl (0.6-1.2) 08/25/23 06:13 Est Cr Clr Drug Dosing 86.0 ml/min 08/25/23 06:13 Est GFR ( Amer) 80.5 ml/min 08/25/23 06:13 Est GFR (Non-Af Amer) 69.5 ml/min 08/25/23 06:13 BUN/Creatinine Ratio 12.2 (10-20) 08/25/23 06:13 Glucose 123 mg/dl (70-99(Fasting)) H 08/25/23 06:13 Calcium 8.3 mg/dl (8.6-10.3) L 08/25/23 06:13 Impressions Knee X-Ray 08/24/23 10:06 XR knee RT 1 or 2V routine HISTORY: 62 years-old Female Surgical Post Op right knee total joint arthroplasty COMPARISON: 08/09/2023 TECHNIQUE: 2 views of the right knee FINDINGS: Total joint arthroplasty with patellar resurfacing. Expected postoperative soft tissue swelling with deep tissue air. No acute fracture, dislocation or opaque foreign body. IMPRESSION: Total joint arthroplasty with expected postoperative changes. ACT 112: Negative or not required by law. The above report was generated using voice recognition software. It may contain grammatical, syntax or spelling errors. Electronically signed by: Fam Tenorio M.D. 08/24/2023 11:17 AM
--- NOTE | 2023-08-25 09:18 | Discharge Summary ---
Date of Service August 25, 2023 Admission HPI Per Admitting Provider History of Present Illness (including history relevant to procedure): 62-year-old female presents to the clinic today for preoperative history and physical. Patient complains of a 2-year history of persistent right knee pain that affects the medial and lateral aspect of her knee. Patient states she has had corticosteroid injections and failed 2 series of viscosupplementation with Euflexxa. Patient states she has been using ibuprofen to help manage her pain but is minimally effective. She also states she tried a knee brace which did not alleviate her pain at all. She is electing to proceed with surgical i ntervention for her severe arthritis. Review Of Systems: A 12 point review of systems form is unremarkable except for those things stated in the HPI and past medical history. Past Medical History: Problems: Genu valgum Degenerative arthritis of knee, bilateral Overweight Hypertension Sickle cell trait Hiatal hernia Obesity Upper and lower dentures Psoriasis Procedure History Procedure Procedure Date Comments EGD section Allergies and Sensitivities: NKA Current Home Meds: (Last Updated 08/10 16:01) ciprofloxacin (Cipro 500 mg oral tablet) 500 mg PO q12h PREOP UTI sodium hyaluronate (Euflexxa 10 mg/mL intra-articular solution) 20 mg intra- articular q7days 6 syringes for B/L knees. Please ship to physician's office: [address] [place] [id number] ustekinumab (Stelara Vial 45 mg/0.5 mL SQ solution) 45 mg subQ STELARA VIAL TO INJECT UNDER THE SKIN EVERY _WEEKS. DISCARD REMAINDER. Initial Wt: 08/09 112.8 kg 248 lb Admission Exam Per Admitting Provider Physical Exam: (relevant to the procedure, including heart and lung evaluation) General: Alert and oriented x3 with proper grooming and hygiene Eyes: Pupils are equal and reactive to light with accommodation. Extraocular movements are intact Throat: Posterior oropharynx is clear with absence of edema, erythema and exudate. Presence of upper and lower dentures noted Cardiac: Regular rate with irregular rhythm (occasional PVC). No murmurs or gallops appreciated Lungs: Clear to auscultation throughout with no wheezing, rales or rhonchi Abdomen: Obese, nondistended, nontender with NABS Extremities: Right knee; range of motion is from 10 degrees of extension to 90 degrees of flexion. Patient experiences medial and lateral joint tenderness when the knees are palpated in the flexed position. She has visible valgus malalignment. Her patella is not mobile due to arthritic change within the patellofemoral joint. There is audible crepitation with passive range of motion of the knee. There is no laxity with varus or valgus stressing. AP drawer sign is unremarkable. Patient is neurovascular intact. Neuro: Cranial nerves II through XII are intact no motor or sensory deficit Skin: Normal in appearance with no open skin areas or discharge Principal Diagnosis Right knee osteoarthritis Discharge Exam Right knee: Outer dressing was removed. Silverlon's are clean dry and intact and left in place. Patient does have some mild tenderness to palpation over the quadriceps region where the tourniquet was placed. She is able to actively perform a straight leg raise test and actively dorsi and plantarflex her foot. Active knee range of motion is from 0 degrees of extension to 80 degrees of flexion. Patient is neurovascularly intact. There is no laxity with light varus or valgus stressing. Discharge Data Allergies Allergy/AdvReac Type Severity Reaction Status Date / Time No Known Allergies Allergy Verified 08/04/23 08:04 Procedures Performed Operation Date: 08/24/23 07:00 Actual Procedures p Right Total Knee Arthroplasty(Right) - Lito Rosales MD Ordered Studies 08/24/23 05:00 US - OR guided needle placemen Routine Hospital Course (1) S/P total knee replacement: Patient had an uneventful overnight stay following right total knee arthroplasty. She is very pleased with the results of the surgery. She states that her pain is effectively controlled with oral oxycodone. She plans on being discharged home later today with in-home physical therapy for the first 2 weeks postoperatively. PT/OT Weightbearing as tolerated with walker assistance and immobilizer use for the first 48 hours postoperatively Pain control with p.o. medication DVT prophylaxis with LIBRADO stockings and aspirin Ice with easy wrap Keep Silverlon dressing in place Plan is to discharge home later today with in-home physical therapy for the first 2 weeks postoperatively Follow-up at [facility] orthopedics as previously scheduled With questions contact our clinic at [phone] Total Time Total Time Spent Total Time Spent (In Minutes): 20 minutes Discharge Plan Discharge Items Patient Disposition: Home - Home Health Services Reason For Visit: Right Knee Osteoarthritis Discharge Diagnosis: Right Knee Osteoarthritis Activity: As commented below Lifting: None Bathing: Keep incision dry Bathing Comment: May shower tomorrow Sexual Activity: Wait until after follow-up appointment Exercise/Sports: Wait until after follow-up appointment Driving/Machine Use: No driving until cleared by security assurance specialist Weightbearing: Right weightbearing Weightbearing Comment: as tolerated with walker assistance Non-emergency contact: Surgeon Call non-emergency contact if: you have any medication questions, your pain is worsening, your temperature is above 101.5, your wound has increased drainage and your wound pain has increased Follow-up/Referrals: PCP,NO [Primary Care Provider] - Diet: Regular Addtl Attending Provider Instructions: Post-operative Instructions Dear Patient and Family/Friends, Before you are discharged from the hospital, it is important to know what to expect when you get home after surgery. To that end, we have created this sheet of discharge instructions which covers many commonly asked questions. Make sure you go through this sheet in its entirety with your nurse before you are discharged. Please note that we will go over the specifics of your surgery and recovery when you return for your first post-operative visit. Sincerely, Dr. Rosales Medications 1. Oxycodone 5 mg: take 1-2 tab every 4-6 hours as needed for pain relief. This will be sent to your pharmacy. 2. Ibuprofen 800 mg: resume your q6 hrs Ibuprofen. If you need a refill, contact our clinic. 3. Aspirin 81 mg: take 1 tab twice daily for 30 days post operatively for blood clot prevention. Please purchase. 4. Tylenol 325 mg: take your Tylenol 4x/daily for supplemental pain relief. Pain Expect to be in a fair amount of pain after surgery. Remember, our goal is not to eliminate your pain, but to make it tolerable. It is a good idea to stay ahead of your pain by taking the medications you were prescribed once you get home. Typically, the pain starts improving 3-7 days after surgery. You should start weaning off the narcotic pain medication (oxycodone, hydrocodone, hydromorphone, morphine) as soon as your pain improves. Please call our office if your pain is not adequately controlled. Ice Ice your operative site at least 5 times a day for 15-30 minutes at a time. Make sure you have a thin cloth between the ice or cooling unit and your skin to prevent garcia bite. This is especially important if you received a nerve block. Continue icing your operative site for the first 5-7 days after surgery, then as needed. Diet/Nausea/Vomiting Start by drinking clear liquids and eating crackers. If you can tolerate this, then you may resume your normal diet. If you feel nauseated or vomit, take Zofran/ondansetron (if prescribed). Please call our office if you have intractable nausea or vomiting, or, if after hours, you may go to the Emergency Room for help. Constipation Constipation is a common side effect of narcotic pain medication. If you have not had a bowel movement within 2 days after surgery, we recommend purchasing an over the counter laxative such as Milk of Magnesia, Dulcolax, or Miralax from a local pharmacy, and taking it as instructed. Call our clinic if any questions. Slings and Braces If you were placed in a sling or brace, it must be worn at all times, including sleep. You may remove your sling or brace for physical therapy, home exercises, and showering. The length of time you will be in your brace and range of motion restrictions depends on what surgery you had; these details will be reviewed at your first post-operative appointment. Weight bearing and Range of Motion. Do not bear any weight through your operative extremity immediately after surgery. If you had upper extremity surgery, do not lift anything with that arm. If you are in a knee brace, keep it locked in place until your follow-up. We will discuss your weight bearing, range of motion, and lifting restrictions in detail at your first post-operative appointment. Continuous Passive Motion (CPM) Machine If you were prescribed a CPM machine, it will start after your first post- operative appointment, at which time we will give you instructions on the range of motion settings and duration of treatment Physical therapy You will be given a prescription for physical therapy or occupational therapy at your first post-operative appointment. Typically, patients start therapy within 1 week of surgery Wound care and showering We will inspect your wound at your first post-operative visit, and may do a dressing change at that time. Most patients will be in a water-proof dressing that is removed 14 days after surgery. It is normal to see some dried blood on the dressing. Do not remove your dressing, paper strips or sutures yourself unless you are given permission. Showering is allowed the day after surgery. Do not scrub or remove any dressings. The wound should not be submerged underwater (i.e. in a bathtub or pool) until 4 weeks after surgery LIBRADO stockings If you were given white stockings, these are to be worn at all times except to shower (on both legs) for the first 2 weeks after surgery. Driving You may not drive while taking narcotic pain medication or while in a cast, splint, sling or brace. You, the patient, need to make the final determination about when you are safe to drive, however, the earliest you may consider driving after surgery is below: Hand/Wrist/Elbow Surgery: 3 days Shoulder Surgery: 2 weeks Hip,/Knee/Ankle Surgery: 4 weeks Fracture repair: 6 weeks Return to Work Your return to work depends on what surgery was done and what type of work you do. Please bring any paperwork your employer needs completed to your first post-operative visit. Also, bring a description of your job duties, as this helps us to understand what risks you may face at work. Travel Avoid long distance travel (greater than 1 hour) in airplanes and cars for the first 6 weeks after surgery. If you must travel, you need to have a Doppler ultrasound done before you travel to rule out a blood clot in your legs. Follow-up You should have a follow-up appointment already scheduled 1-2 days after surgery. If not, please contact our office to make this appointment before you leave the hospital. When to call the office It is normal to have swelling and bruising in the limb that was operated on. This will improve with time. It is also normal to have fevers for the first 2 days after surgery. Reasons you should call your doctor include: Uncontrolled pain; Nausea, vomiting, or constipation that does not improve with medication; Fevers over 101.5, chills, sweats; Drainage or bleeding from the wound; Foul odor; Spreading areas of redness; Any other concerns Pending Studies at Discharge: No Stand-Alone Forms: Anesthesia/Sedation, Adult, [facility] Medications and DC Order Prescriptions: New aspirin 81 mg Tablet,Delayed Release (Dr/Ec) 81 mg PO BID 30 Days Qty: 60 0RF oxycodone 5 mg Tablet 5 - 10 mg PO Q4H MDD Ongoing treatment PRN (Reason: Postoperative pain control) Qty: 28 0RF Continued acetaminophen [Tylenol] 325 mg Tablet 325 mg PO QID PRN (Reason: Pain) ibuprofen 800 mg Tablet 800 mg PO Q6H PRN (Reason: Pain) hydrochlorothiazide 12.5 mg Tablet 12.5 mg PO QAM Stelara 90 mg/mL Syringe 90 mg SUBCUT DIRECTED Patient Comments: ON HOLD FOR SURGERY 08/04/23 Admission Data Admit Date/Time: 08/24/23 10:06 Attending Provider: Lito Rosales Admit Provider: Lito Rosales Primary Care Provider: PCP,NO Other Providers: [facility],Home Healthcare
== END 2023-08-25 17:53 | disposition home health service (06) ==
LOC: ASU 06:38 → 3E 06:38

== ENCOUNTER 2024-01-04 09:05 | Observation (INO) ==
--- NOTE | 2023-12-26 14:45 | Anesthesiology Consultation ---
Date of Service December 26, 2023 Assessment & Plan (1) Encounter for pre-operative examination: Plan - medical clearance 12/21/23: "...L knee surgery...BPs have been within normal range...cardio-pulm asymptomatic...cleared to undergo knee surgery..." Outpatient joint assessment: Patient is currently scheduled for inpatient pathway. If re-evaluated and patient/surgeon requests outpatient pathway, patient is acceptable candidate for outpatient joint program from anesthesia standpoint pending surgeon's office assessment of pt motivation/support/completion of same day joint program preop requirements. - Per assessment services manager on 12/26/23: No known infectious disease contacts, current infectious disease symptoms in past 10 days or COVID positive test result in the past 30 days. Chart Review Chart Review: Acceptable Risk for Surgery and Patient NOT seen in Pre Admission Testing History Surgery Operation Date: 01/04/24 11:20 Proposed Procedures p Left Total Knee Arthroplasty - Lito Rosales MD Height/Weight Height: 5 ft 8 in Weight: 111.13 kg Allergies Allergy/AdvReac Type Severity Reaction Status Date / Time No Known Allergies Allergy Verified 12/26/23 14:19 Medications Home Medications Medication Instructions Recorded Confirmed Last Taken acetaminophen 325 mg tablet 325 mg PO QID PRN Pain 08/04/23 12/26/23 08/23/23 18:00 (Tylenol) hydrochlorothiazide 12.5 mg tablet 12.5 mg PO QAM 08/04/23 12/26/23 Unknown ibuprofen 800 mg tablet 800 mg PO Q6H PRN Pain 08/04/23 12/26/23 Unknown ustekinumab 90 mg/mL subcutaneous 90 mg subcut DIRECTED 08/04/23 12/26/23 Unknown syringe (Stelara) oxycodone 5 mg tablet 5 - 10 mg (1 - 2 x 5 mg) PO Q4H 08/25/23 12/26/23 Unknown PRN Postoperative pain control #28 tabs Past Medical History Medical History Arthritis Esophageal achalasia remote hx with surgery to correct > no current issues History of COVID-2021 > not hospitalized Hypertension Psoriasis Past Family History Family History Other No family history of adverse response to anesthesia Past Surgical History Surgical History History of esophagogastroduodenoscopy (EGD) History of tooth extraction S/P total knee replacement 08/2023 [facility] Social History Smoking Status: Never smoker Do You Dip or Chew Tobacco: No Hx Alcohol Use: No Hx Substance Use: No substance use type: does not use Lab Results Anesthesia Preop Results Results Anesthesia Widget: WBC 4.76 K/ul (4.8-10.8) L 12/18/23 Hgb 11.7 g/dl (12.0-16.0) L 12/18/23 Hct 35.3 % (37.0-47.0) L 12/18/23 Plt 164 K/uL (130-400) 12/18/23 Na 138 mmol/L (136-145) 12/18/23 K 4.0 mmol/L (3.5-5.1) 12/18/23 Cl 103 mmol/L (98-107) 12/18/23 CO2 29 mmol/L (21-32) 12/18/23 BUN 11 mg/dl (6-23) 12/18/23 Creat 0.80 mg/dl (0.6-1.2) 12/18/23 Glucose Level 77 mg/dl (70-99(Fasting)) 12/18/23 PT 10.9 Seconds (9.0-12.0) 12/18/23 PTT 28 Seconds (21-31) 12/18/23 INR 1.0 (0.9-1.1) 12/18/23 Urine Color Yellow 12/18/23 Urine Appearance Clear (Clear) 12/18/23 Urine pH 7.0 (4.5-7.5) 12/18/23 Urine Specific Clay 1.014 (1.000-1.030) 12/18/23 Urine Protein Negative (Negative) 12/18/23 Urine Glucose (UA) Negative (Negative) 12/18/23 Urine Ketones Negative (Negative) 12/18/23 Urine Blood Negative (Negative) 12/18/23 Urine Nitrite Negative (Negative) 12/18/23 Urine Bilirubin Negative (Negative) 12/18/23 Urine Urobilinogen Negative (Negative) 12/18/23 Urine Leukocyte Esterase Negative (Negative) 12/18/23 Blood Type O Positive 12/18/23 Antibody Screen NEGATIVE 12/18/23 Testing Electrocardiogram Date: 08/09/23 Sinus rhythm with PACs, rate 70 bpm Chest X-Ray Date: 12/18/23 No active disease in the chest.
[~2024-01-04 09:05] MED LIST changes: -ACETAMINOPHEN 500 MG TAB PO SCH; -BUPIVACAINE 0.25% PF 30 ML VIAL ONE; -CeleBREX 200 MG CAP PO SCH; +DEXAMETHASONE SOD INJ 4 MG/ML VIAL ONE; -FAMOTIDINE 20 MG TAB PO SCH; +LIDOCAINE 2% 2 ML VIAL/AMP(20MG/ML) INFIL ONE; -LR 60ML/HR IV SCH; +ONDANSETRON INJ 2 MG/ML 2 ML VIAL ONE; -ORTHO JOINT ANESTHETIC ONE; +ROPIVACAINE 0.5% 5 MG/ML 30 ML VIAL ONE; -ROPIVACAINE 0.5% HCL/PF 150 MG, BUPIVACAINE 0.75% MPF 20 ML, EPINEPHrine 0.15 MG, Ketor... INFIL SCH; -Scopolamine 1 MG TDSY TD SCH; -TRANEXAMIC ACID 1,000 MG **IV Intra-op IV SCH; -TRANEXAMIC ACID 1,000 MG **IV Pre-op IV SCH; -dexAMETHasone 4 MG TAB PO SCH; -traMADol HCL 50 MG TABLET PO SCH
[2024-01-04] MEDS: ACETAMINOPHEN 500 MG TAB PO SCH ×2 (10:09→21:54)
[2024-01-04] MEDS: LR 500ML BOLUS, THEN 15ML/HR IV SCH (10:09)
[2024-01-04] MEDS: CeleBREX 200 MG CAP PO SCH (10:09)
[2024-01-04] MEDS: LR 60ML/HR IV SCH (10:10)
[2024-01-04] MEDS: dexAMETHasone**PF** 10 MG/ML VIAL IV SCH (10:10)
[2024-01-04] MEDS: FAMOTIDINE 20 MG TAB PO SCH (10:10)
[2024-01-04] MEDS: traMADol HCL 50 MG TABLET PO SCH (10:13)
[2024-01-04] MEDS: Scopolamine 1 MG TDSY TD SCH (10:26)
[2024-01-04] MEDS ORDERED: ePHEDrine sulfate 50 MG/ML AMP IV PRN (10:37)
[2024-01-04] MEDS ORDERED: PROMETHAZINE HCL 6.25 MG in SODIUM CHLORIDE 0.9% 50 ML IV PRN (10:37)
[2024-01-04] MEDS ORDERED: HYDROmorphone INJ 2 MG/ML SYR/VIAL IV PRN (10:37)
[2024-01-04] MEDS ORDERED: ATROPINE SULFATE 0.1 MG/ML 10ML SYR IV PRN (10:37)
[2024-01-04] MEDS: TRANEXAMIC ACID 1,000 MG **IV Pre-op IV SCH (11:50)
--- NOTE | 2024-01-04 12:28 | History & Physical Bridge Note ---
Date of Service January 04, 2024 History & Physical Bridge Note I have examined the patient, reviewed the History & Physical and in the interval since the performance of the History & Physical I have noted the following changes of clinical significance: no changes noted
[2024-01-04] MEDS ORDERED: fentaNYL citrate PF 100 MCG/2 ML VIAL ONE (12:57)
[2024-01-04] MEDS ORDERED: ROCURONIUM BROMIDE 10 MG/ML 5 ML VIAL IV ONE ×6 (12:59)
[2024-01-04] MEDS ORDERED: METOPROLOL TARTRATE 1 MG/ML VIAL IV ONE (13:01)
[2024-01-04] MEDS ORDERED: LABETALOL HCL IV 5 MG/ML 20ML IV ONE (13:07)
[2024-01-04] MEDS ORDERED: HYDROmorphone INJ 2 MG/ML SYR/VIAL ONE (13:15)
[2024-01-04] MEDS ORDERED: hydrALAZINE HCL 20 MG/ML VIAL ONE (13:16)
[2024-01-04] MEDS: ORTHO JOINT ANESTHETIC ONE (13:26)
[2024-01-04] MEDS: ROPIV 0.5% 246mg, Ketorolac 30mg, EPINEPHrine 0.5mg in NSS INFIL SCH (13:49)
[2024-01-04] MEDS: TRANEXAMIC ACID 1,000 MG **IV Intra-op IV SCH (14:01)
[2024-01-04] MEDS ORDERED: SUGAMMADEX SODIUM 200 MG/2 ML VIAL IV ONE (14:17)
--- NOTE | 2024-01-04 14:25 | Operative Report ---
Post Operative Report Pre & Post Diagnosis Operation Date: 01/04/24 10:40 Preoperative diagnosis: Left knee osteoarthritis and valgus malalignment. Postop diagnosis: left knee osteoarthritis and valgus malalignment. I identified the patient and participated in the time-out.: Yes Procedure Operation Date: 01/04/24 10:40 Left total knee arthroplasty Surgeon Lito Rosales MD Loan Operations Specialist MANNY Funk PA-C. No resident or fellow was available to assist. Estimated Blood Loss 100 Findings Consistent with Post-Op Diagnosis Fluids 1200 cc crystalloid Specimens Left knee bone and soft tissue contents Anesthesia Type General Regional Complications none Indications 63-year-old female with left knee osteoarthritis refractory to conservative management. X-rays demonstrate [id number] joint space loss in the lateral compartment of the knee. She has valgus malalignment meant seen both clinically as well as radiographically. She has previously undergone a right total knee arthroplasty for the same diagnoses on her contralateral right knee. She has had a good result from the surgery and would like to proceed with the same surgery on the left side. I do long discussion with her about the risks and benefits of surgery, alternatives to surgery, and expected outcomes. After reviewing all these she elected to proceed with surgery. All questions were answered. Informed consent was signed. Description of Procedure Patient was identified in the preoperative holding area where the surgical site, left knee, was marked. Spinal anesthetic was placed by anesthesia. Patient was brought back to the operating room, placed on the operating room table, and IV sedation was administered. A bump was placed underneath the ipsilateral hip. All bony prominences were padded. Perioperative antibiotics and tranexamic acid were administered. Exam under anesthesia was performed. This demonstrated patient's range of motion to be approximately 8 to 100 degrees flexion extension arc. Valgus malalignment of approximately 12 degrees was noted. Medial lateral collateral ligaments were stable to testing at 30 degrees of knee flexion. The surgical site was prepped and draped in the normal sterile fashion. Prior to incision a multidisciplinary timeout was called. All in the room were in agreement. We began by exsanguinating the limb with an Esmarch bandage. Tourniquet was inflated to 250 mmHg. A 16 cm long incision was made over the anterior aspect of the knee. I dissected through the subcutaneous tissues to the level of the fascia. Full-thickness flaps were raised above the fascia. A median parapatellar arthrotomy was made. Half the fat pad was excised. A medial release was performed with Bovie electrocautery on the proximal tibia. Synovitis in the knee and suprapatellar pouch was removed. The patella was then everted and held with 2 towel clips. The thickness of the patella was measured at 21 mm. Patellar resection was performed. Caliper showed the patella thickness now to be 13 mm. A size 32 trial was placed and had a great fit. The 3 drill holes were placed then the trial button was placed. The patellar thickness was now 22 mm which I was very happy with. The patellar trial was then removed, and the knee was flexed up. Retractors were placed to protect the MCL and LCL. Osteophytes were removed from the femoral condyles and intercondylar notch. The ACL and PCL were excised. Intramedullary drill guide was drilled into the femur. Distal femoral cutting guide was placed set at 5 degrees of valgus to resect 11 mm off the distal femur. Distal femoral resection was made without difficulty. The tibia was then exposed. The lateral meniscus was sharply excised. The tibial cutting jig was positioned in line with the tibial shaft in the coronal plane and with 3 degrees of posterior slope in the sagittal plane to resect 7 mm off the more involved compartment. The jig was then pinned in position and the tibial cut was made. We then brought the knee into full extension. Lamina spreaders were placed. The medial meniscus was excised. The extension block was then placed for 5 mm thickness poly. This gave us full extension and excellent stability to varus and valgus stress. Next the extension block was removed, the knee was flexed up, collateral ligaments were protected, and the epicondylar axis and Whitesides line were marked out on the distal femoral cut. Femoral sizing guide was placed. External rotation was set at 3 degrees so that the posterior cut would be parallel with the epicondylar axis and perpendicular with Whitesides line. The patient sized to a size 5 femur. 2 pins were then placed through the jig into the distal femur. The jig was removed and the appropriately sized 4-in-1 cutting jig was placed over the pins, then fixated to the bone using threaded, headed pins. We confirmed that we would not notch the femur with our anterior cut. Our 4 cuts were then made. The cutting jig was removed. The flexion block was then placed with the knee held at 90 degrees. There was excellent stability to varus and valgus at 90 degrees with no gapping medially or laterally. Next the box cutting jig was placed on the distal femur. The box cut was made and the femoral trial was impacted into position. Lug holes were drilled in the distal femur. We then reexposed the tibia. The tibia was sized to a size 5 for a fixed-bearing component. The tibial tray with a 5 mm thickness polyethylene liner was placed on the cut tibial surface and the knee was brought through a full range of motion. There was excellent stability to varus valgus stress throughout a full range of motion, which was approximately 0 to 125 degrees. Bovie electrocautery was used to mo the tibia at the site where the tibial tray rested in full extension. We then flexed up the knee, removed the polyethylene liner, and pinned the tibial tray into position to match the cautery mo. The intramedullary drill followed by the keel punch were used to prepare the tibia. Next the trial components were removed. I then injected the posterior capsule and periosteum with the periarticular injection cocktail. The bone cuts were then irrigated and dried while the cement was mixed on the back table. The femoral component was cemented on first. Excess cement was removed. A lap sponge was placed over the femoral component for protection, then the tibia was subluxated anteriorly. The all polyethylene tibial component was then cemented in place. Again excess cement was removed. The knee was brought into full extension and held there until the cement cured. The patella was cemented and clamped. Dilute Betadine solution was then allowed to soak in the knee while the cement cured. Once the cement was fully cured, the knee was irrigated out, the tourniquet was let down and meticulous hemostasis was ensured. The knee was brought through a full range of motion. I was were very happy with the patella tracking and the stability. We then began to close. Interrupted 0 Vicryl suture was used to repair the patellar retinaculum in [id number] fashion. The quadriceps and patellar tendons were run with #1 Vicryl. The deep dermal layer was closed with interrupted 2-0 Vicryl. Dermabond and Zipline was used for the skin, followed by a Silverlon dressing. A compressive Ashu wrap was placed and the knee was placed into a knee immobilizer. Patient's sedation was lifted and was transferred to recovery room in stable condition. Summary of implants: Depuy Attune Posterior Stabilized Cemented Femur, size 5 left Attune All-polyethylene tibial component, posterior stabilized 5 mm thickness, size 5 Attune patella medialized dome, size 32 2 batches of Palacos bone cement Postoperative course: Patient will be admitted to the floor for pain control and monitoring. Weightbearing as tolerated with a walker with no knee range of motion for 48 hours. Aspirin for DVT prophylaxis. I attest to the content of the Intraoperative Record and any orders documented therein. Any exceptions are noted below.
[2024-01-04] MEDS ORDERED: ALUMINUM/MAGNESIUM SUSP 30 ML UDC PO PRN (14:34)
[2024-01-04] MEDS ORDERED: diphenhydrAMINE 50 MG/ML VIAL IV PRN (14:34)
[2024-01-04] MEDS ORDERED: bisacodyL 10 MG SUPP PR PRN (14:34)
[2024-01-04] MEDS ORDERED: MAGNESIUM HYDROXIDE SUSP 30 ML UDC PO PRN (14:34)
[2024-01-04] MEDS ORDERED: METOCLOPRAMIDE HCL INJ 5 MG/ML 2 ML VIAL IV PRN (14:34)
[2024-01-04] MEDS ORDERED: NALOXONE HCL 0.4 MG/1 ML VIAL/CARP IV PRN (14:34)
[2024-01-04] MEDS ORDERED: ONDANSETRON INJ 2 MG/ML 2 ML VIAL IV PRN (14:34)
--- NOTE | 2024-01-04 14:34 | Operative Report ---
Post Operative Report Pre & Post Diagnosis Operation Date: 01/04/24 10:40 Pre-Op Diagnosis: Left Knee Osteoarthritis Post-Op Diagnosis: Left Knee Osteoarthritis I identified the patient and participated in the time-out.: Yes Procedure Operation Date: 01/04/24 10:40 Actual Procedures p Left Total Knee Arthroplasty(Left) - Lito Rosales MD Surgeon Lito Rosales MD Automotive Machinist MANNY Funk PA-C. No resident or fellow was available to assist. Estimated Blood Loss 100 Findings Consistent with Post-Op Diagnosis Specimens left knee bone and soft tissue Description of Procedure I was present during the entire case assisting with positioning, prepping, draping, wound retraction, wound closure and dressing application. No fellow present. Please see Dr. Rosales procedure note for specifics of the case. I attest to the content of the Intraoperative Record and any orders documented therein. Any exceptions are noted below.
[2024-01-04] MEDS ORDERED: oxyCODONE HCL IR 5 MG TAB (IMMEDIATE RELEASE) PO PRN (14:38)
--- NOTE | 2024-01-04 15:23 | Anesthesiology Progress Note ---
Date of Service January 04, 2024 Anesthesia Post Procedure Vital Signs Vital Signs: Temp Pulse Pulse Resp BP Pulse Ox O2 Del Method 01/04/24 15:15 36.3 C L 87 14 120/71 94 Room Air 01/04/24 15:05 87 16 126/72 94 Room Air 01/04/24 14:55 85 13 121/70 98 Oxymask 01/04/24 14:45 92 H 13 113/65 98 Oxymask 01/04/24 14:35 36.2 C L 90 16 102/68 97 Oxymask 01/04/24 10:27 36.6 C 85 20 134/85 96 Room Air O2 Flow Rate 01/04/24 15:15 01/04/24 15:05 01/04/24 14:55 3 01/04/24 14:45 4 01/04/24 14:35 5 01/04/24 10:27 Transfer of Care Handoff Completed per policy Notes Mental Status: alert / awake / arousable and participated in evaluation Nausea / Vomiting: adequately controlled Pain: adequately controlled Airway Patency, RR, SpO2: stable & adequate BP & HR: stable & adequate Hydration State: stable & adequate Anesthetic Complications: no major complications apparent and Pt Satisfied with anesthetic care
--- NOTE | 2024-01-04 15:37 | XRay Report ---
XR knee LT 1 or 2V routine CLINICAL HISTORY: Surgical Post Op COMPARISON: Left knee radiographs December 18, 2023. FINDINGS: Alignment of the total left knee arthroplasty is anatomic. There is no periprosthetic frac ture or unexpected radiopaque foreign body. There is a polyethylene tibial component. IMPRESSION: Expected findings following total left knee arthroplasty. ACT 112: Negative or not required by law. Electronically signed by: Jorge A Abraham M.D. 01/04/2024 3:36 PM
[2024-01-04] MEDS: SODIUM CHLORIDE 0.9% 1,000 ML IV SCH (16:38)
[2024-01-04] MEDS: Scopolamine CHECK PATCH PLACEMENT SCH (16:39)
[2024-01-04] MEDS: KETOROLAC TROMETHAMINE 15 MG/ML VIAL IV SCH (16:47)
[2024-01-04] MEDS: HYDROmorphone INJ 0.5 MG/0.5 ML SYR IV PRN (16:58)
[2024-01-04] MEDS: SENNA 8.6 MG TAB PO SCH (20:17)
[2024-01-04] MEDS: ASPIRIN 81 MG ECTAB PO SCH (20:17)
[2024-01-04] MEDS: DOCUSATE SODIUM 100 MG CAP PO SCH (20:17)
[2024-01-04] MEDS: ceFAZolin 2000MG 2,000 MG/15 ML SYR IV SCH (20:18)
[2024-01-04] MEDS: oxyCODONE HCL IR 5 MG TAB (IMMEDIATE RELEASE) PO PRN (20:18)
[2024-01-05 07:34] LABS: Hematocrit (blood only) 28.9 % (37.0-47.0); Hemoglobin 10.3 g/dl (12.0-16.0); Mean Corpuscular Hemoglobin 28.8 pg (25.0-34.0); Mean Corpuscular Hgb Conc 35.6 g/dL (32.0-36.0); Mean Corpuscular Volume 80.7 fL (80.0-100.0); Mean Platelet Volume 12.1 fL (9.4-12.4); Platelet Count 187 K/uL (130-400); RDW Coefficient of Variation 14.9 % (11.5-14.5); RDW Standard Deviation 44.2 fL (36.4-46.3); Red Blood Count 3.58 M/uL (4.20-5.40); White Blood Count 16.53 K/ul (4.8-10.8)
[2024-01-05 07:57] LABS: BUN Creatinine Ratio 18.6 (10-20); Calcium 8.5 mg/dl (8.6-10.3); Est GFR (African American) 84.5 ml/min; Est GFR (Non-African American) 72.9 ml/min
[2024-01-05] MEDS: hydroCHLOROthiazide 25 MG TAB PO SCH (08:06)
[2024-01-05] MEDS: dexAMETHasone 4 MG TAB PO SCH (08:06)
[2024-01-05] MEDS: MULTIVITAMIN TAB PO SCH (08:07)
--- NOTE | 2024-01-05 10:19 | Orthopedic Progress Note ---
Date of Service January 05, 2024 Assessment & Plan (1) S/P total knee arthroplasty: Plan: Patient is postop day #1 status post a left total knee arthroplasty doing well Advised on continuing with knee immobilizer for 48 hours post operatively. After tomorrow afternoon she may remove and do range of motion for knee flexion as tolerated. She will continue with 81 mg aspirin twice a day for 6 weeks for DVT prophylaxis and tato hose for 3 weeks She will continue to use ice to the hip x 20 minutes with a towel layer as needed Continue with pain medications as prescribed PDMP queried sent oxycodone and diclofenac for pain control Reviewed she will need antibiotics prior to all dental visits. She will be discharged home if deemed safe by physical therapy with home health She will keep her follow-up appointment with [facility] on 01/17/2024 Patient verbalized understanding and is in agreement with plan. Admission and Anticipated Discharge Date Admission Date: January 04, 2024 Subjective Patient is a 63-year-old female who is a known patient to Dr. Nicole stark. She is being seen bedside this a.m. status post a left total knee arthroplasty postop day 1. She is sitting at the edge of the bed eating. She states she is doing okay and has some pain in her knee rates about a 67/10. She is able to transition back into bed with some assistance for the left lower extremity. She feels her pain is being managed with oral medication. She states she does not have any concerns regarding her pain management or control. She feels she is able to go home safely. She denies any fever, chills, chest pain, shortness of breath, dizziness, nausea, vomiting, abdominal pain, calf pain. Review of Systems Review of Systems: Please refer to HPI Physical Exam Physical Exam: General: Patient is alert and oriented x 3 no acute distress pleasant and conversive. She is in good spirits Integumentary/musculoskeletal: Left lower extremity has knee immobilizer on this was removed with bulky dressing. There is dried scant amount of drainage over the inferior portion of the dressing. This was left intact. There is no surro unding erythema, fluctuance, or edema. She has tenderness surrounding the knee which is to be anticipated. She is able to get full extension knee flexion passively she is able to get to approximately 20 degrees. She is unable to do a straight leg raise. Her calf is soft and nontender. She is able to actively dorsiflex and plantarflex ankle. Dorsal pedis pulses 2+. Knee immobilizer was applied. Results & Data Vital Signs (Past 12 Hours) Vital Signs Temp Pulse Resp BP Pulse Ox O2 Del Method 01/05/24 07:13 37.0 C 78 16 105/55 L 95 Room Air 01/05/24 02:50 36.8 C 83 16 106/63 94 Room Air 01/04/24 22:43 36.6 C 82 18 103/68 95 Room Air Laboratory Results 01/05/24 Range/Units 07:04 WBC 16.53 H (4.8-10.8) K/ul RBC 3.58 L (4.20-5.40) M/uL Hgb 10.3 L (12.0-16.0) g/dl Hct 28.9 L (37.0-47.0) % MCV 80.7 (80.0-100.0) fL MCH 28.8 (25.0-34.0) pg MCHC 35.6 (32.0-36.0) g/dL RDW Std Deviation 44.2 (36.4-46.3) fL RDW Coeff of Lyn 14.9 H (11.5-14.5) % Plt Count 187 (130-400) K/uL MPV 12.1 (9.4-12.4) fL Sodium 137 (136-145) mmol/L Potassium 4.0 (3.5-5.1) mmol/L Chloride 105 (98-107) mmol/L Carbon Dioxide 24 (21-32) mmol/L Anion Gap 8 (3-11) BUN 16 (6-23) mg/dl Creatinine 0.86 (0.6-1.2) mg/dl Est Cr Clr Drug Dosing 89.0 ml/min Est GFR ( Amer) 84.5 ml/min Est GFR (Non-Af Amer) 72.9 ml/min BUN/Creatinine Ratio 18.6 (10-20) Glucose 132 H (70-99(Fasting)) mg/dl Calcium 8.5 L (8.6-10.3) mg/dl Diagnostic Findings Knee X-Ray 01/04/24 14:34 XR knee LT 1 or 2V routine CLINICAL HISTORY: Surgical Post Op COMPARISON: Left knee radiographs December 18, 2023. FINDINGS: Alignment of the total left knee arthroplasty is anatomic. There is no periprosthetic fracture or unexpected radiopaque foreign body. There is a polyethylene tibial component. IMPRESSION: Expected findings following total left knee arthroplasty. ACT 112: Negative or not required by law. Electronically signed by: Jorge A Abraham M.D. 01/04/2024 3:36 PM
--- NOTE | 2024-01-05 14:26 | Discharge Summary ---
Date of Service January 05, 2024 Admission HPI Per Admitting Provider History of Present Illness Patient is a 63-year-old female here today for her preoperative history and physical for left knee total arthroplasty with Dr. Rosales. She had her right knee replaced 08/2023 and is doing well from that. She has completed physical therapy. She is interested in getting her left knee done now. She has failed conservative treatment and is electing to proceed with surgical intervent ion. Admission Exam Per Admitting Provider Physical Exam Vitals & Measurements T: 36 C HR: 85 (Monitored) RR: 18 BP: 160/84 SpO2: 96% HT: 164.3 cm WT: 113.000 kg (Dosing) WT: 113 kg BMI: 41.86 General: Pt is well nourished, seated on the exam table AA&O, in NAD, calm and cooperative during exam HENT: Nontraumatic, no gross deformity, hearing and vision grossly in-tact, PERRL Heart: +S1, +S2, RRR, no murmurs appreciated Lungs: CTABL, no wheezing appreciated Focusing on the patient's Left lower extremity: Sensation intact to light touch L3 to S1 dermatomes. Valgus malalignment of about 15 ROM: 3 to 110 Tenderness on medial and lateral joint lines [1] Principal Diagnosis left knee osteoarthritis Discharge Exam General: Patient is alert and oriented x 3 no acute distress pleasant and conversive. She is in good spirits Integumentary/musculoskeletal: Left lower extremity has knee immobilizer on this was removed with bulky dressing. There is dried scant amount of drainage over the inferior portion of the dressing. This was left intact. There is no surrounding erythema, fluctuance, or edema. She has tenderness surrounding the knee which is to be anticipated. She is able to get full extension knee flexion passively she is able to get to approximately 20 degrees. She is unable to do a straight leg raise. Her calf is soft and nontender. She is able to actively dorsiflex and plantarflex ankle. Dorsal pedis pulses 2+. Knee immobilizer was applied. Discharge Data Allergies Allergy/AdvReac Type Severity Reaction Status Date / Time No Known Allergies Allergy Verified 01/04/24 09:50 Procedures Performed Operation Date: 01/04/24 10:40 Actual Procedures p Left Total Knee Arthroplasty(Left) - Lito Rosales MD Ordered Studies 01/04/24 05:00 US - OR guided needle placemen Routine Hospital Course (1) S/P total knee arthroplasty: Patient had an uneventful overnight stay following left total knee arthroplasty. She is doing well this morning. She states that she does not have a ride to get home until later this afternoon. She is planning on doing in-home physical therapy for the first 2 weeks postoperatively. She is very pleased with the results of surgery. Patient is postop day #1 status post a left total knee arthroplasty doing well Advised on continuing with knee immobilizer for 48 hours post operatively. After tomorrow afternoon she may remove and do range of motion for knee flexion as tolerated. She will continue with 81 mg aspirin twice a day for 6 weeks for DVT prophylaxis and librado hose for 3 weeks She will continue to use ice to the hip x 20 minutes with a towel layer as needed Continue with pain medications as prescribed PDMP queried sent oxycodone and diclofenac for pain control Reviewed she will need antibiotics prior to all dental visits. She will be discharged home if deemed safe by physical therapy with home health She will keep her follow-up appointment with [facility] orthopedics on 01/17/2024 Patient verbalized understanding and is in agreement with plan. Total Time Total Time Spent Total Time Spent (In Minutes): 20 mins Discharge Plan Discharge Items Patient Disposition: Home - Home Health Services Reason For Visit: Left Knee Osteoarthritis Discharge Diagnosis: Left knee osteoarthritis Condition on Discharge: Good Activity: As commented below Lifting: None Bathing: Keep incision dry Bathing Comment: May shower tomorrow Sexual Activity: Wait until after follow-up appointment Exercise/Sports: Wait until after follow-up appointment Weightbearing: Full weightbearing Weightbearing Comment: As tolerated with walker assistance and immobilizer for the first 48 hours Call non-emergency contact if: you have any medication questions, your pain is not controlled, your temperature is above 101.5, your wound has increased drainage and your wound pain has increased Follow-up/Referrals: Dada Funk PA-C [Physician Fretted Instruments Inspector] - 01/17/24 11:15 am PCPCHAVEZ [Primary Care Provider] - Diet: Regular Addtl Attending Provider Instructions: Post-operative Instructions Dear Patient and Family/Friends, Before you are discharged from the hospital, it is important to know what to expect when you get home after surgery. To that end, we have created this sheet of discharge instructions which covers many commonly asked questions. Make sure you go through this sheet in its entirety with your nurse before you are discharged. Please note that we will go over the specifics of your surgery and recovery when you return for your first post-operative visit. Sincerely, Dr. Rosales Medications: 1. Oxycodone 5 mg tablet: Take 1-2 tabs every 4-6 hours as needed for postoperative pain control. A prescription for this medication will be sent to your pharmacy. 2. Diclofenac sodium 75 mg tablet: Take 1 tablet twice daily for the first 30 days postoperatively for pain and inflammation relief. 3. Aspirin 81 mg tablet: Take 1 tablet twice daily for the first 30 days postoperatively for blood clot prevention. Please purchase 4. Extra strength Tylenol 500 mg tablet: Take 2 tabs every 6-8 hours as needed for additional pain relief. Please purchase Pain Expect to be in a fair amount of pain after surgery. Remember, our goal is not to eliminate your pain, but to make it tolerable. It is a good idea to stay ahead of your pain by taking the medications you were prescribed once you get home. Typically, the pain starts improving 3-7 days after surgery. You should start weaning off the narcotic pain medication (oxycodone, hydrocodone, hydromorphone, morphine) as soon as your pain improves. Please call our office if your pain is not adequately controlled. Ice Ice your operative site at least 5 times a day for 15-30 minutes at a time. Make sure you have a thin cloth between the ice or cooling unit and your skin to prevent garcia bite. This is especially important if you received a nerve block. Continue icing your operative site for the first 5-7 days after surgery, then as needed. Diet/Nausea/Vomiting Start by drinking clear liquids and eating crackers. If you can tolerate this, then you may resume your normal diet. If you feel nauseated or vomit, take Zofran/ondansetron (if prescribed). Please call our office if you have intractable nausea or vomiting, or, if after hours, you may go to the Emergency Room for help. Constipation Constipation is a common side effect of narcotic pain medication. If you have not had a bowel movement within 2 days after surgery, we recommend purchasing an over the counter laxative such as Milk of Magnesia, Dulcolax, or Miralax from a local pharmacy, and taking it as instructed. Call our clinic if any questions. Slings and Braces If you were placed in a sling or brace, it must be worn at all times, including sleep. You may remove your sling or brace for physical therapy, home exercises, and showering. The length of time you will be in your brace and range of motion restrictions depends on what surgery you had; these details will be reviewed at your first post-operative appointment. Nerve block The anesthesia team sometimes places a nerve block to help with post-operative pain control. This results in significant numbness and inability to move the extremity. The nerve block usually wears off in 8-12 hours, but sometimes can last up to 24 hours. Please call our office if you are still unable to move your extremity after 24 hours, unless you received a pain pump to take home. Nerve blocks typically wear off quickly, so start taking pain medication as soon as you start feeling soreness near your surgical site. Weight bearing and Range of Motion. Do not bear any weight through your operative extremity immediately after surgery. If you had upper extremity surgery, do not lift anything with that arm. If you are in a knee brace, keep it locked in place until your follow-up. We will discuss your weight bearing, range of motion, and lifting restrictions in detail at your first post-operative appointment. Continuous Passive Motion (CPM) Machine If you were prescribed a CPM machine, it will start after your first post- operative appointment, at which time we will give you instructions on the range of motion settings and duration of treatment Physical therapy You will be given a prescription for physical therapy or occupational therapy at your first post-operative appointment. Typically, patients start therapy within 1 week of surgery Wound care and showering We will inspect your wound at your first post-operative visit, and may do a dressing change at that time. Most patients will be in a water-proof dressing that is removed 14 days after surgery. It is normal to see some dried blood on the dressing. Do not remove your dressing, paper strips or sutures yourself unless you are given permission. Showering is allowed the day after surgery. Do not scrub or remove any dressings. The wound should not be submerged underwater (i.e. in a bathtub or pool) until 4 weeks after surgery LIBRADO stockings If you were given white stockings, these are to be worn at all times except to shower (on both legs) for the first 2 weeks after surgery. Driving You may not drive while taking narcotic pain medication or while in a cast, splint, sling or brace. You, the patient, need to make the final determination about when you are safe to drive, however, the earliest you may consider driving after surgery is below: Hand/Wrist/Elbow Surgery: 3 days Shoulder Surgery: 2 weeks Hip,/Knee/Ankle Surgery: 4 weeks Fracture repair: 6 weeks Return to Work Your return to work depends on what surgery was done and what type of work you do. Please bring any paperwork your employer needs completed to your first post-operative visit. Also, bring a description of your job duties, as this helps us to understand what risks you may face at work. Travel Avoid long distance travel (greater than 1 hour) in airplanes and cars for the first 6 weeks after surgery. If you must travel, you need to have a Doppler ultrasound done before you travel to rule out a blood clot in your legs. Follow-up You should have a follow-up appointment already scheduled 1-2 days after surgery. If not, please contact our office to make this appointment before you leave the hospital. When to call the office It is normal to have swelling and bruising in the limb that was operated on. This will improve with time. It is also normal to have fevers for the first 2 days after surgery. Reasons you should call your doctor include: Uncontrolled pain; Nausea, vomiting, or constipation that does not improve with medication; Fevers over 101.5, chills, sweats; Drainage or bleeding from the wound; Foul odor; Spreading areas of redness; Any other concerns Pending Studies at Discharge: No Stand-Alone Forms: My [facility], Pain - Opioid Pain Management Medications and DC Order Prescriptions: New oxycodone 5 mg Tablet 5 - 10 mg PO Q4H MDD Do not exceed 6 pills in 24 hr PRN (Reason: pain) Qty: 18 0RF diclofenac sodium 75 mg tablet,delayed release (DR/EC) 75 mg PO BID 30 Days Qty: 60 0RF Continued hydrochlorothiazide 12.5 mg Tablet 12.5 mg PO QAM Held ibuprofen 800 mg Tablet 800 mg PO Q6H PRN (Reason: Pain) Hold Instructions: Resume on 02/17/24. Discontinued acetaminophen [Tylenol] 325 mg Tablet 325 mg PO QID PRN (Reason: Pain) Stelara 90 mg/mL Syringe 90 mg SUBCUT DIRECTED Patient Comments: ON HOLD FOR SURGERY 08/04/23 oxycodone 5 mg Tablet 5 - 10 mg PO Q4H MDD Ongoing treatment PRN (Reason: Postoperative pain control) Qty: 28 0RF Krames/Other Patient Handouts: DVT Post Op Prevention Admission Data Admit Date/Time: 01/04/24 14:34 Attending Provider: Lito Rosales Admit Provider: Lito Rosales Primary Care Provider: PCP,NO Other Providers: [facility]; [facility],Referral Center Other Interventions: Discharge Summary Assessment (RN) Last Done: 01/05/24 12:29
== END 2024-01-05 18:04 | disposition home health service (06) ==
LOC: ASU 09:05 → PACUINP 09:05 → 3E 16:33